=== PATIENT | female | born 1965 | race Caucasian/White ===

== ENCOUNTER 2025-05-30 19:07 | Outpatient (REF) | payer MEDICAID, SELFPAY ==
[2025-05-30 18:42] LABS: HCT 38.1 % (36.0-46.0); HGB 12.6 g/dL (11.2-15.7); MCH 29.9 pg (27.0-33.0); MCHC 33.1 % (32.0-36.0); MCV 90 fL (80-95); MPV 10.1 fL (8.0-11.0); Platelet Count 259 10^3/uL (130-400); RBC 4.22 10^6/uL (3.93-5.22); RDW 14.1 % (11.7-14.6); RDW-SD 46.5 fL; WBC 7.56 10^3/uL (4.4-10.8)
[2025-05-30 19:04] LABS: Hemoglobin A1C 5.8 % (<5.7)
[2025-05-30 19:53] LABS: Anion Gap 9.9 mmol/L (3-11); BUN 13 mg/dL (7-18); CO2 24.1 mmol/L (21.0-32.0); Calcium 9.3 mg/dL (8.5-10.1); Chloride 106 mmol/L (98-107); Glucose 94 mg/dL (74-106); Magnesium 2.0 mg/dL (1.8-2.4); Potassium 3.9 mmol/L (3.5-5.1); Sodium 140 mmol/L (136-145); Vitamin B12 655 pg/mL (193-986)
== END 2025-05-30 19:08 | disposition home or self-care (01) ==
LOC: NCHCN 19:07
PROVIDERS: Visit Provider Nurse Practitioner Family
DX: Z79.899 Other long term (current) drug therapy (principal); R73.03 Prediabetes; Z13.0 Encounter for screening for diseases of the blood and blood-forming organs and certain disorders involving the immune mechanism
CPT/HCPCS: 80048; 85027; 82607; 83036; 83735